=== PATIENT | male | born 1980 | race Caucasian/White ===

== ENCOUNTER 2019-07-25 10:06 | Outpatient (CLI) | payer BC, SELFPAY ==
--- NOTE | 2019-07-25 10:15 | MR_ITS ---
WS: [id number] MRI LUMBAR SPINE NONCONTRAST TECHNIQUE: Sagittal T1, T2 and STIR imaging. Axial T1 and T2 imaging. CLINICAL INFORMATION: LUMBAR BACK PAIN WITH RADICULOPATHY COMPARISON: None. FINDINGS: Normal lumbar alignment. No acute compression. Disc bulging worse L5-S1 with a right pericentral prot rusion. L1-L2: Normal. L2-L3: Normal. L3-L4: No significant disc bulging. Mild facet arthropathy. Spinal canal and foramen are patent. L4-L5: Mild annular bulging. Slight narrowing of the subarticular recess bilaterally. Mild facet arth ropathy. Mild left foraminal narrowing. L5-S1: Right pericentral disc protrusion. Impingement on the right subarticular recess and traversing right S1 nerve root. Mild central canal stenosis. Smaller left pericentral protrusion impinges the l eft S1 nerve root. Mild bilateral foraminal narrowing. Mild facet arthropathy. Small left pericentral protrusion at T6/7 in the thoracic spine visualized on the checker in imaging. MR/MR lumbar spine wo con* [id number] IMPRESSION: 1. Mild lumbar curve. No acute compression. 2. Small right pericentral protrusion L5-S1 impinges the right subarticular re cess and traversing right S1 nerve root. 3. Smaller left pericentral protrusion L5-S1 impinges the traversing left S1 n erve root. Mild central canal stenosis at this level. 4. Mild bilateral L5-S1 foraminal narrowing. 5. Mild left L4-5 foraminal narrowing. 6. Small left pericentral protrusion T6-7 seen on the checker in imaging.
--- NOTE | 2019-07-25 10:16 | MR_ITS ---
WS: [id number] MRI RIGHT KNEE NONCONTRAST TECHNIQUE: Axial PD, coronal PD fat sat, coronal PD, sagittal PD, and sagittal PD fat-sat images obta ined. CLINICAL INFORMATION: RIGHT KNEE PAIN COMPARISON: None. FINDINGS: Distal quadriceps and patella tendons are intact. Slightly hypertrophic patella. Anterior and posteri or cruciate ligaments are intact. Small amount of prepatellar soft tissue edema. Lateral meniscus is normal. Hazy intrasubstance signal abnormality involving the posterior horn medial meniscus. Medial collateral and lateral collateral ligaments are intact. Mild chondromalacia involving the bo lla worse involving the lateral patella facet. MR/MR knee RT wo con* [id number] IMPRESSION: 1. Normal anterior and posterior cruciate ligaments. 2. Hazy intrasubstance signal abnormality involving the posterior horn medial meniscus. Normal lateral meniscus. 3. Anterior and posterior cruciate ligaments are intact. 4. 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
== END 2019-07-25 10:07 | disposition home or self-care (01) ==
LOC: RADWPI 10:14
PROVIDERS: PCP Family Medicine; Visit Provider Family Medicine
DX: M54.16 Radiculopathy, lumbar region (principal); M25.561 Pain in right knee; M22.41 Chondromalacia patellae, right knee; M51.27 Other intervertebral disc displacement, lumbosacral region; M48.07 Spinal stenosis, lumbosacral region; M51.24 Other intervertebral disc displacement, thoracic region
CPT/HCPCS: 72148; 73721

== ENCOUNTER 2019-08-01 16:56 | Emergency (ER) | payer BC, SELFPAY ==
--- NOTE | 2019-08-01 17:01 | XR_ITS ---
WS: [id number] ABDOMEN KUB CLINICAL INFORMATION: Constipation COMPARISON: None. FINDINGS: Normal bowel gas pattern. Scattered air and normal caliber small and large bowel. No significant jania l distention. Pelvic phleboliths. XR/XR KUB [id number] Impression: Normal bowel gas pattern.
[2019-08-01 17:15] VITALS: BP 152/99; PULSE 96; RESP 18; TEMP 36.9; O2SAT 97; BMI 27.7
--- NOTE | 2019-08-01 17:25 | W.ED.GENADLT ---
HPI - General Adult General: Chief complaint: General Medical Stated complaint: constipation *2 weeks Time Seen by Provider: 08/01/19 17:22 Source: patient Mode of arrival: ambulatory Limitations: no limitations History of Present Illness: HPI narrative: 39-year-old male states he injured his back 1 month ago and has been taking pain meds. He states that since then he is not had a bowel movement in 2 weeks. He states his abdominal pain along with cramping. He denies any worsening or improving factors. He denies any fevers. He did have vomiting today Onset (ago): week(s) Associated symptoms: Deny chest pain, dyspnea, headache(s) or rash Review of Systems Const: Denies: fever, chills, body aches or change in appetite Eyes: Denies: blurry vision or eye discomfort ENMT: Denies: throat pain or dental pain Card: Denies: chest pain Resp: Denies: shortness of breath GI: Reports: abdominal pain and constipation : Denies: painful urination Musc: Denies: neck pain or back pain Skin/Breast: Denies: rash Neuro: Denies: headache Psych: Denies: depression Hero/Lymph: Denies: easy bruising All/Imm: Denies: hives PFSH ED PFSH: Social History Smoking and tobacco status: current every day smoker Physical Exam Const: COMMON NORMALS: no apparent distress, oriented x3 and healthy appearing HENMT: COMMON NORMALS: normocephalic and head/scalp atraumatic HEAD & SCALP: normocephalic and atraumatic Eye: COMMON NORMALS: PERRL and EOMs intact bilaterally PUPIL: Yes PERRL Neck/C-Spine: COMMON NORMALS: full ROM and supple Chest: COMMONS NORMALS: inspection of chest normal and palpation of chest normal Resp: COMMON NORMALS: normal respiratory effort, no retractions, no use of accessory muscles and clear to auscultation bilaterally AUSCULTATION: clear to auscultation bilaterally Cardio: COMMON NORMALS: regular rate, regular rhythm and no murmurs RATE: regular rate RHYTHM: regular rhythm GI: COMMON NORMALS: normal to inspection, nondistended, normoactive bowel sounds, soft to palpation, non-tender and no masses PALPATION: Yes soft Extremity: COMMON NORMALS: normal to inspection and full ROM Neuro: COMMON NORMALS: oriented x3, moves all extremities and no focal motor deficits Psych: COMMON NORMALS: mental status grossly normal, thought process normal and cooperative THOUGHT PROCESS: normal thought process Skin: COMMON NORMALS: no rashes or lesions noted and no wounds GENERAL SKIN EXAM: no rashes or lesions noted Course Vital Signs: Vital signs: Vital Signs Temperature 98.4 F 08/01/19 17:15 Pulse Rate 86 08/01/19 18:19 Respiratory Rate 17 08/01/19 18:34 Blood Pressure 139/83 08/01/19 18:19 Pulse Oximetry 96 08/01/19 18:19 MDM - General Adult MDM Narrative: Medical decision making narrative: Patient presents here with constipation. Patient's abdominal exam here is benign he has no signs of surgical cause for his pain. Patient's feeling improved here after lactulose and will discharge on MiraLAX. Patient is to follow-up with primary care doctor in 2 to 4 days and return if worsening. Imaging Data^: KUB: Attestation: I personally reviewed and interpreted this imaging study as follows: My impression: constipation Discharge Plan Discharge Patient Disposition: Home, Self-Care Clinical Impression: Constipation Qualifiers: Constipation type: unspecified constipation type Qualified Code(s): K59.00 - Constipation, unspecified Condition: Stable Prescriptions: New Miralax 17 gram/dose powder 17 gm PO DAILY Qty: 119 RF: 1 Discharge Orders: Discharge Order (Routine); Ordered 08/01/19 Ordered By: Katia Buckley Referrals: Dnae Laurent MD [Primary Care Provider] - 1-3 days Discharge Diet: Advance as tolerated Discharge Activity: Resume usual activity Patient Instructions: Constipation (ED) Coding Level of Care Code ED [employer] for Chg Fwd Exam Comprehensive
[2019-08-01] MEDS: lactulose oral liq 20 gm/30 mL UDC 30 GM PO (18:12)
[2019-08-01 18:19] VITALS: BP 139/83; PULSE 86; RESP 14; O2SAT 96
[2019-08-01 18:34] VITALS: RESP 17
[2019-08-01] MEDS: polyethylene glycol 3350 Pkt 17 gm PO (18:35)
[2019-08-01 19:44] VITALS: BP 139/83; PULSE 84; RESP 16; O2SAT 94
== END 2019-08-01 19:44 | disposition home or self-care (01) ==
PROVIDERS: Emergency Provider Emergency Medicine; PCP Family Medicine
DX: K59.00 Constipation, unspecified (principal); F17.210 Nicotine dependence, cigarettes, uncomplicated
CPT/HCPCS: 12345; 74018; 99282; 99283

== ENCOUNTER 2021-12-08 06:00 | Outpatient (RCR) | payer OTHER, SELFPAY | END 2021-12-08 23:59 | disposition home or self-care (01) | LOC: SPT 06:00 | PROVIDERS: PCP Family Medicine; Visit Provider Family Medicine | DX: Z98.1 Arthrodesis status (principal) | CPT/HCPCS: 97161 ==

== ENCOUNTER 2021-12-09 06:00 | Outpatient (RCR) | payer OTHER, SELFPAY | END 2022-01-07 23:59 | disposition home or self-care (01) | LOC: SPT 06:00 | PROVIDERS: PCP Family Medicine; Visit Provider Family Medicine | DX: R53.1 Weakness (principal); Z98.1 Arthrodesis status | CPT/HCPCS: 97110 ==

== ENCOUNTER 2022-01-08 06:00 | Outpatient (RCR) | payer OTHER, SELFPAY | END 2022-02-07 23:59 | disposition home or self-care (01) | LOC: SPT 06:00 | PROVIDERS: PCP Family Medicine; Visit Provider Family Medicine | DX: R53.1 Weakness (principal) | CPT/HCPCS: 97110 ==

== ENCOUNTER 2022-02-08 06:00 | Outpatient (RCR) | payer OTHER, SELFPAY | END 2022-03-09 23:59 | disposition home or self-care (01) | LOC: SPT 06:00 | PROVIDERS: PCP Family Medicine; Visit Provider Family Medicine | DX: Z98.1 Arthrodesis status (principal); R53.1 Weakness | CPT/HCPCS: 97110 ==